=== PATIENT | male | born 1945 | race Caucasian/White ===

== ENCOUNTER → 2016-11-07 | Outpatient (CLI) | payer MEDICARE ==
[~2016-11-07] MED LIST: ASP325T PO; CEPH500T PO; CLOP75TA PO; CYAN1TAB21 PO; CYCL10TA9 PO; DIAZ10TA PO; GLIP5TAB26 PO; HYDR-3448 PO; LANS30CA PO; LISI40TA PO; MELO-195 PO; METO25TA PO; MULT1CAP27 PO; NIA500ERT PO; NITR0.4T12 SL; OMEG10005 PO; PNT40TEC PO; PRAV80TA2 PO; RAMI5CAP PO; pro air
== END ==
LOC: CARD 07:49
PROVIDERS: ATTEND Internal Medicine Cardiovascular Disease
DX: I25.10 Atherosclerotic heart disease of native coronary artery without angina pectoris (principal); I10 Essential (primary) hypertension; E78.2 Mixed hyperlipidemia; I07.1 Rheumatic tricuspid insufficiency
CPT/HCPCS: 93306

== ENCOUNTER → 2016-11-13 | Outpatient (CLI) | payer MEDICARE ==
[~2016-11-13] MED LIST changes: +CATHETER FLUSH 10 ML SYR IV PRN
[2016-11-13 09:56] VITALS: BP 161/80
[2016-11-13 10:15] VITALS: BP 159/72
--- NOTE | 2016-11-14 06:11 | STRESS TEST ---
DATE OF SERVICE: 11/13/2016 EXERCISE MYOVIEW STRESS TEST REPORT REFERRING PHYSICIAN: Dr. Xiong. Baseline heart rate is 50, baseline blood pressure 156/68. Baseline EKG sinus rhythm with no ischemic changes. SUMMARY: The patient was injected with 10.78 mCi of technetium-99 Myoview and the resting images were obtained. Then, the patient started exercising with baseline heart rate, blood pressure and EKG mentioned above. At minute 10, patient was injected with 30.3 mCi of technetium-99 Myoview. He was able to finish a total of 11 minutes on standard Rashid protocol, total of 12.8 METS, achieving maximum heart rate of 136, which is 90% of maximum expected heart rate, with peak exercise level blood pressure 203/81. During recovery, heart rate and blood pressure returned to baseline. EKG returned to baseline. With peak exercise level EKG was showing nondiagnostic changes. The resting and stress images were reviewed and compared in the short axis, horizontal long axis, and vertical long axis views. Review of the images showed diaphragmatic attenuation with good radiotracer uptake, no significant ischemia or infarction on SPECT images. SSS 1. SDS 1. TID value 0.99. On the gated images, the left ventricle appeared to be normal size with normal contractility, calculated ejection fraction 49%. CONCLUSIONS: 1. Excellent exercise tolerance, a total of 11 minutes on standard Rashid protocol, total of 12.8 METS achieving 90% of maximum expected heart rate. 2. Hypertensive response to exercise, returned to baseline during recovery. 3. No ischemia or infarction on SPECT images. 4. Normal left ventricular size with normal contractility, calculated ejection fraction 49%. Job ID: [id number] DocumentID: [id number] Dictated Date: 11/13/2016 15:10:29 Finishing Supervisor Date: 11/13/2016 20:00:58 Dictated By: BABAK ECHOLS MD
== END ==
LOC: CARD 08:02
PROVIDERS: ATTEND Internal Medicine Cardiovascular Disease
DX: I25.10 Atherosclerotic heart disease of native coronary artery without angina pectoris (principal); I10 Essential (primary) hypertension; E78.2 Mixed hyperlipidemia; I07.1 Rheumatic tricuspid insufficiency
CPT/HCPCS: 78452; 93017

== ENCOUNTER 2018-07-28 07:41 | Outpatient (CLI) | payer MEDICARE ==
[~2018-07-28] VITALS: Ht 170.2 cm; Wt 83.5 kg
== END 2018-07-28 13:32 | disposition home or self-care (01) ==
LOC: PREOP 07:41
PROVIDERS: ATTEND Internal Medicine
DX: Z01.818 Encounter for other preprocedural examination (principal)

== ENCOUNTER → 2018-07-31 | Day surgery (SDC) | payer MEDICARE ==
--- NOTE | 2018-07-23 21:03 | HISTORY AND PHYSICAL ---
DATE OF SERVICE: COLONOSCOPY HISTORY AND PHYSICAL DATE OF ADMISSION: 07/31/2018 HISTORY OF PRESENT ILLNESS: The patient is a 73-year-old white male referred by Dr. Gavin Fernandez for surveillance colonoscopy. He has a past history of adenomatous colonic polyps and last underwent colonoscopy six years ago at which time he had one tubular adenoma removed from the mid sigmoid colon and one made at which time, he had three tubular adenomas removed, one from the mid sigmoid colon, one from the proximal transverse colon and one from the mid descending colon. He reports that he has felt well. Since that time, denies bowel habit change, abdominal pain, bright red blood per rectum, melena or change in weight. PAST MEDICAL HISTORY: Significant for hypertension, hyperlipidemia and coronary artery disease. He underwent cardiac stenting in 2003 and he has had no problems since. 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 He quit smoking in 2003 with a previous 30+ pack year smoking history. He has no history of any significant alcohol consumption. FAMILY HISTORY: Father of a heart attack at age of 78. Mother of natural causes at the age of 93. He is not aware of any family history for colon cancer or colon polyps. MEDICATIONS ON ADMISSION: Include pravastatin 80 mg daily, lisinopril 20 mg daily, pantoprazole 40 mg daily, 81 mg aspirin daily and 3000 mg fish oil daily. PHYSICAL EXAMINATION: GENERAL: Reveals a pleasant white male, who appears to be in no acute distress. VITAL SIGNS: Weight is unchanged from six years ago at 184 pounds, blood pressure 130/76. HEENT: Unremarkable. Sclerae nonicteric. Oral cavity reveals Mallampati class 2 pharyngeal configuration with no evidence for erythema. CHEST: Clear to auscultation. CARDIOVASCULAR: Regular rate and rhythm without murmur, S3 or S4. ABDOMEN: Soft, supple, nontender without mass or organomegaly. Bowel sounds are positive. No evidence for abdominal aortic aneurysm was noted to palpation. EXTREMITIES: Reveal no cyanosis, clubbing or edema. ASSESSMENT AND PLAN: Due to the past history of adenomatous colonic polyps, the patient is set up for repeat surveillance colonoscopy on 07/31/2018. Prep instructions with the Prado-prep kit were given and questions were answered. I thank you for the referral of this pleasant gentleman. Job ID: [id number] DocumentID: [id number] Dictated Date: 07/23/2018 15:59:33 Education Professor Date: 07/23/2018 21:02:12 Dictated By: INESSA AGUILERA MD
[~2018-07-31] VITALS: Ht 170.2 cm; Wt 83.5 kg
[~2018-07-31] MED LIST changes: +ASPI-999 PO; -CATHETER FLUSH 10 ML SYR IV PRN; +D5 LR IV SOLUTION 1,000 ML IV ONE; +D5 LR IV SOLUTION 1,000 ML IV PRN; +LIDOCAINE JELLY 2% 6 ML SYRINGE MM PRN; +LIDOCAINE JELLY 2% 6 ML SYRINGE ONE; +LISI-552 PO; +MIDAZOLAM 2 MG/2 ML (VERSED) VIAL IVP ONE; +MIDAZOLAM 2 MG/2 ML (VERSED) VIAL ONE; +MULT1TAB69 PO; +OMEG-143 PO; +PANT40TA3 PO; +fentaNYL INJECTION 100 MCG/2 ML AMP IVP ONE; +fentaNYL INJECTION 100 MCG/2 ML AMP ONE
[2018-07-31 08:15] VITALS: BP 146/77
--- NOTE | 2018-07-31 08:31 | Pre-Op Note & Conscious Sedat ---
Pre-Operative Progress Note H&P Reviewed The H&P was reviewed, patient examined and no changes noted. Date H&P Reviewed: Jul 31, 2018 Time H&P Reviewed: 08:31 Conscious Sedation Pre-Proced ASA Score 2 For ASA 3 and 4: Consider anesthesia and medical clearance. Also, for patients with a history of failed moderate sedation consider anesthesia. Airway Lungs Heart ASA score ASA 1: a normal healthy patient ASA 2: a patient with a mild systemic disease (mid diabetes, controlled hypertension, obesity ASA 3: a patient with a severe systemic disease that limits activity (angina , COPD, prior Myocardial infarction) ASA 4: a patient with an incapacitating disease that is a constant threat to life (CHF, renal failure) ASA 5: a moribund patient not expected to survive 24 hrs. (ruptured aneurysm) ASA 6: a declared brain- patient whose organs are being harvested. For emergent operations, add the letter E after the classification Mallampati Classification Grade 2 Sedation Plan Analgesia, Amnesia, Plan communicated to team members, Discussed options with patient/fam, Discussed risks with patient/fam The patient is an appropriate candidate to undergo the planned procedure, sedation, and anesthesia. The patient immediately re-assessed prior to indication. INESSA AGUILERA MD Jul 31, 2018 08:31
[2018-07-31 09:45] VITALS: BP 137/71
[2018-07-31 10:00] VITALS: BP 135/63
[2018-07-31 10:05] VITALS: BP 135/63
--- NOTE | 2018-07-31 17:04 | OPERATIVE REPORT ---
DATE OF SERVICE: COLONOSCOPY SUMMARY INDICATION FOR THE PROCEDURE: Surveillance colonoscopy due to past history of colon polyps. The patient was placed in left lateral decubitus position. Prior to undergoing colonoscopy, digital rectal evaluation was performed. Anal sphincter tone was normal and the perianal reflexes intact. The prostate was mild to moderately enlarged, anodular and nontender to digital inspection. No other abnormalities, no additional inspection of anal canal or distal rectal vault. The colonoscope was then inserted into the rectum and under direct visualization advanced to the cecum. The cecum was identified by identification of the ileocecal valve, cecal strap and appendiceal orifice. Photographic documentation was obtained. Careful inspection was made as the colonoscope was withdrawn. The quality of the prep was good. FINDINGS: There was no evidence for internal or external hemorrhoids and the rectum was unremarkable. Several small sigmoid diverticula were present without evidence for diverticulitis. One diminutive polyp was noted in the mid descending colon. It was photographed and biopsied and ablated and submitted for histopathology. The remainder of the descending colon, splenic flexure and transverse colon were unremarkable. Several small right-sided diverticulum were noted. One diminutive mid ascending colonic sessile polyp was noted. It was photographed and biopsied and ablated with no subsequent blood loss. The tissue was submitted for histopathology. The remainder of the ascending colon and cecum were unremarkable. ASSESSMENT: Two diminutive polyps were removed today, one from the mid ascending and the other from the mid descending colon. Both cauterized with hot forceps with no subsequent blood loss. As long as there are no surprises on histopathology, we would advocate consideration for repeat surveillance colonoscopy in 5 years as long as the patient's health remains good. Mild diverticular disease was present without evidence for diverticulitis in the sigmoid colon and there were several small diverticula being noted in the ascending colon as well. The prostate is mild to moderately enlarged, otherwise unremarkable to digital inspection. Thank you for the referral of this pleasant gentleman. Job ID: [id number] DocumentID: [id number] Dictated Date: 07/31/2018 09:42:42 [employer] Flatbed Truck Driver Date: 07/31/2018 17:03:58 Dictated By: INESSA AGUILERA MD
== END | disposition home or self-care (01) ==
LOC: ENDO 07:59
PROVIDERS: ATTEND Internal Medicine
DX: Z12.11 Encounter for screening for malignant neoplasm of colon (principal); D12.2 Benign neoplasm of ascending colon; D12.4 Benign neoplasm of descending colon; K57.30 Diverticulosis of large intestine without perforation or abscess without bleeding; Z86.010 Personal history of colon polyps; I25.10 Atherosclerotic heart disease of native coronary artery without angina pectoris; I10 Essential (primary) hypertension; E78.5 Hyperlipidemia, unspecified; Z87.891 Personal history of nicotine dependence; Z95.5 Presence of coronary angioplasty implant and graft; Z79.82 Long term (current) use of aspirin; Z79.899 Other long term (current) drug therapy

== ENCOUNTER → 2020-02-04 | Outpatient (CLI) | payer MEDICARE ==
[~2020-02-04] MED LIST changes: -D5 LR IV SOLUTION 1,000 ML IV ONE; -D5 LR IV SOLUTION 1,000 ML IV PRN; -LIDOCAINE JELLY 2% 6 ML SYRINGE MM PRN; -LIDOCAINE JELLY 2% 6 ML SYRINGE ONE; -MIDAZOLAM 2 MG/2 ML (VERSED) VIAL IVP ONE; -MIDAZOLAM 2 MG/2 ML (VERSED) VIAL ONE; +MULT-567 PO; -MULT1TAB69 PO; -fentaNYL INJECTION 100 MCG/2 ML AMP IVP ONE; -fentaNYL INJECTION 100 MCG/2 ML AMP ONE
--- NOTE | 2020-02-04 11:45 | Diagnostic Imaging Report ---
EXAMINATION: Magnetic resonance imaging of the left shoulder without contrast. DATE: February 04, 2020. COMPARISON: None. HISTORY: 74-year-old male, left shoulder pain. TECHNIQUE: Magnetic Resonance Imaging sequences were performed of the shoulder without contrast. FINDINGS: ROTATOR CUFF, LIGAMENTS, TENDONS, AND MUSCLES: There is a 16 mm wide full-thickness tear of the supraspinatus tendon with tendon retraction measuring 12 mm near the level of the superior humeral head. The infraspinatus and teres minor tendons are intact. There is subscapularis tendinopathy. There are small intramuscular ganglion cyst in the subscapularis muscle. LONG HEAD OF BICEPS: The biceps labral attachment and long head of the biceps tendon is intact. The long head of the biceps tendon is normally positioned within the bicipital groove. GLENOHUMERAL JOINT: The humeral head is well positioned relative to the glenoid. The labrum is grossly intact. There is no identified paralabral cyst. The articular cartilage is grossly intact. There is no joint effusion. ACROMIOCLAVICULAR JOINT: The acromioclavicular joint is normally aligned. The coracoclavicular and coracoacromial ligaments are intact. There are moderate acromioclavicular degenerative changes with osteophytes extending approximately 3 mm below the joint margin. BONE: There is no os acromiale. There is no Hill-Sachs deformity. There is a subcortical cyst in the lesser tuberosity which may be reactive to the adjacent tendon pathology. There are small subcortical cystic changes in the superior humeral head underlying the posterior aspect of the infraspinatus tendon insertion. There is no acute fracture, bone contusion, or evidence of osteonecrosis. BURSAE AND SOFT TISSUES: There is a small amount of fluid in the subacromial subdeltoid bursa. IMPRESSION: 1. 16 mm wide full-thickness tear of the supraspinatus tendon with tendon retraction measuring 12 mm to the level of the superior humeral head. 2. Subscapularis tendinopathy. Small ganglion cyst in the supraspinatus muscle which may relate to otherwise occult interstitial tearing of the subscapularis tendon. 3. No fatty atrophy of the rotator cuff musculature. 4. Moderate acromioclavicular degenerative changes with 3 mm undersurface osteophytes. 5. Grossly intact labrum and unremarkable additional glenohumeral joint evaluation. 6. A small amount of fluid in the subacromial subdeltoid bursa which may relate to the full-thickness rotator cuff tendon tear, bursitis, and/or recent injection. Dictated by: Dictated on workstation # [id number]
== END ==
LOC: RAD 09:06
PROVIDERS: ATTEND Family Medicine
DX: M75.102 Unspecified rotator cuff tear or rupture of left shoulder, not specified as traumatic (principal); M67.472 Ganglion, left ankle and foot; M19.012 Primary osteoarthritis, left shoulder
CPT/HCPCS: 73221

== ENCOUNTER 2020-02-24 13:55 | Outpatient (CLI) | payer MEDICARE ==
[~2020-02-24] VITALS: Ht 167.7 cm; Wt 81.7 kg
[~2020-02-24 13:55] MED LIST changes: -PANT40TA3 PO; +PANT40TA52 PO
[2020-02-24 14:06] VITALS: BP 130/67
[2020-02-24] MEDS ORDERED: LISI40TA PO (14:20)
[2020-02-24] MEDS ORDERED: ASPI-999 PO (14:20)
== END 2020-02-24 14:25 | disposition home or self-care (01) ==
LOC: PREOP 13:55
PROVIDERS: ATTEND Orthopaedic Surgery
DX: Z01.818 Encounter for other preprocedural examination (principal); M75.102 Unspecified rotator cuff tear or rupture of left shoulder, not specified as traumatic; S43.402A Unspecified sprain of left shoulder joint, initial encounter
CPT/HCPCS: 87081

== ENCOUNTER 2020-03-01 07:23 | Day surgery (SDC) | payer MEDICARE ==
--- NOTE | 2020-02-24 13:37 | HISTORY AND PHYSICAL ---
DATE OF SERVICE: ADMISSION HISTORY AND PHYSICAL This will be for outpatient surgery on 03/01/2020. Admission, date of service, date of surgery will be 03/01/2020 for left shoulder arthroscopy with open rotator cuff repair. HISTORY: The patient is a 74-year-old right hand dominant gentleman with progressive worsening left shoulder pain and weakness over the last six months. He had no prior history of shoulder problems. He underwent an MRI, which showed a full thickness rotator cuff tear. He reports progressive loss of function with weakness and pain. Due to functional impairment and failure to improve with conservative measures, the patient elected to proceed with surgical intervention. REVIEW OF SYSTEMS: No chest pain, no shortness of breath, no dysuria. PAST MEDICAL HISTORY: Coronary artery disease, hypertension. PAST SURGICAL HISTORY: Coronary stent placement. FAMILY HISTORY: Noncontributory. PRIMARY CARE PROVIDER: Dr. Fernandez. MEDICATIONS: Pravastatin, lisinopril, pantoprazole, aspirin, Centrum, fish oil. ALLERGIES: No known drug allergies. SOCIAL HISTORY: The patient is a former smoker. Denies alcohol use. An MRI revealed a full-thickness supraspinatus tear. PHYSICAL EXAMINATION: GENERAL: The patient is well developed, well nourished, in no acute distress. HEENT: Normocephalic, atraumatic. Pupils are equal, round, reactive to light. Oropharynx is clear. NECK: Supple, no lymphadenopathy. LUNGS: Clear to auscultation bilaterally. HEART: Regular rate and rhythm. ABDOMEN: Soft, nontender, nondistended. EXTREMITIES: Left shoulder demonstrates symmetric forward elevation, external and internal rotation. He has weakness with abduction and external rotation with positive Neer's and positive Hawkin sign. IMPRESSION: Full thickness left supraspinatus tear. PLAN: Left shoulder arthroscopy, acromioplasty, open rotator cuff repair. We discussed risks, benefits, options, ramifications and recovery. He understands and wishes to proceed. Job ID: [id number] DocumentID: [id number] Dictated Date: 02/24/2020 11:51:11 Magnetic Resonance Technologist Date: 02/24/2020 12:40:03 Dictated By: FITO ACKERMAN MD
[~2020-03-01] VITALS: Ht 167.7 cm; Wt 81.7 kg
[2020-03-01] VITALS (10 sets, daily range): BP systolic 104–150; BP diastolic 62–80
[2020-03-01] MEDS ORDERED: LACTATED RINGERS 1,000 ML IV PRN (07:27)
[2020-03-01] MEDS ORDERED: ceFAZolin INJECTION 1,000 MG in WATER (STERILE) FOR INJECTION 10 ML IV ONE (07:30)
[2020-03-01] MEDS ORDERED: CATHETER FLUSH 10 ML SYR IV PRN (07:30)
[2020-03-01] MEDS ORDERED: oxyCODONE/APAP 5/325MG (PERCOCET 5) TABLET PO PRN (07:30)
[2020-03-01] MEDS ORDERED: morphine PF (DURAMORPH) 10 MG/10 ML AMP ONE (07:40)
[2020-03-01] MEDS ORDERED: BUPIVACAINE 0.25% 30 ML (SENSORCAINE) VIAL ONE (07:40)
[2020-03-01] MEDS ORDERED: MIDAZOLAM 2 MG/2 ML (VERSED) VIAL ONE (07:47)
[2020-03-01] MEDS ORDERED: fentaNYL INJECTION 100 MCG/2 ML AMP ONE (07:47)
[2020-03-01] MEDS ORDERED: ROPIVACAINE 5MG/ML 30ML VIAL ONE (08:45)
[2020-03-01] MEDS ORDERED: SEVOFLURANE (ULTANE) 15 ML INHAL SOLN ONE (08:48)
[2020-03-01] MEDS ORDERED: LIDOCAINE PF 2% 5 ML (XYLOCAINE) VIAL ONE (08:48)
[2020-03-01] MEDS ORDERED: ONDANSETRON 4 MG/2 ML (SDV) Z0FRAN ONE (08:48)
[2020-03-01] MEDS ORDERED: proPOfol 200 MG/20 ML (DIPRIVAN) VIAL IV ONE (08:48)
--- NOTE | 2020-03-01 09:01 | Progress Note-Pre Operative ---
Pre-Operative Progress Note H&P Reviewed The H&P was reviewed, patient examined and no changes noted. Date Seen by Provider: Mar 01, 2020 Time Seen by Provider: : Date H&P Reviewed: Mar 01, 2020 Time H&P Reviewed: 09:01 Pre-Operative Diagnosis: left rotator cuff and SLAP tears FITO ACKERMAN MD Mar 01, 2020 09:01
--- NOTE | 2020-03-01 09:02 | Progress Note-Post Operative ---
Post-Operative Progess Note Surgeon (s)/Snow Removal Supervisor (s) Surgeon FITO ACKERMAN MD Snow Removal Supervisor: Andrzej St Pre-Operative Diagnosis left rotator cuff and SLAP tears Post-Operative Diagnosis left rotator cuff and SLAP tears Procedure & Operative Findings Date of Procedure 03/01/20 Procedure Performed/Findings left shoulder arthroscopic acromioplasty and biceps tenotomy and open rotator cuff repair Anesthesia Type GETA plus interscalene Estimated Blood Loss Estimated blood loss (mL): minimal Specimens/Packing Specimens Removed none Packing: none FITO ACKERMAN MD Mar 01, 2020 09:02
[2020-03-01] MEDS ORDERED: GLYCOPYRROLATE 0.2 MG/ML (ROBINUL) 2 ML VIAL ONE (09:42)
[2020-03-01] MEDS ORDERED: NEOSTIGMINE 3 MG/3 ML VIAL ONE (09:42)
[2020-03-01] MEDS ORDERED: ROCURONIUM 10 MG/ML 5 ML SYRINGE IV ONE (09:49)
[2020-03-01] MEDS ORDERED: OXYC-471 PO (10:26)
--- NOTE | 2020-03-01 11:55 | NUR ---
RARON'Hank IV. PATIENT RECEIVED 1900 CC OF LR TODAY.
--- NOTE | 2020-03-01 14:21 | OPERATIVE REPORT ---
DATE OF SERVICE: 03/01/2020 PREOPERATIVE DIAGNOSES: 1. Left rotator cuff tear. 2. Left shoulder SLAP tear. POSTOPERATIVE DIAGNOSES: 1. Left rotator cuff tear. 2. Left shoulder SLAP tear. PROCEDURES PERFORMED: 1. Left shoulder open rotator cuff repair. 2. Left shoulder arthroscopic biceps tenotomy. 3. Left shoulder arthroscopic acromioplasty. SURGEON: Zac Ackerman MD. OUTDOOR POWER EQUIPMENT MECHANIC: Andrzej St, who assisted throughout the procedure and closed the incisions. ANESTHESIA: General endotracheal plus interscalene nerve block by Krystal Cali CRNA. ESTIMATED BLOOD LOSS: Minimal. DRAINS: None. COMPLICATIONS: None. POSTOPERATIVE PLAN: Passive range of motion and sling wear for 4 weeks. The patient was transferred to the recovery room awake and in stable condition. STATEMENT OF MEDICAL NECESSITY: The patient is a 74-year-old gentleman with complaints of progressively worsening left shoulder pain and weakness. An MRI revealed full thickness rotator cuff tear. He had difficulty with sleep. He had weakness with abduction and external rotation due to functional impairment and failure to improve with conservative measures. The patient elected to proceed with surgical intervention. Examination under anesthesia revealed passive forward elevation of 170 degrees, external rotation of 85 degrees and internal rotation of 75 degrees. Arthroscopic findings demonstrated a full thickness supraspinatus tear approximately 2 x 2 cm in size. The remainder of the rotator cuff was intact. There was a type 2 SLAP tear with chondral loss in the superior aspect of the glenoid in an 8 x 8 area of grade III in nature, but no unstable chondral flaps. Subacromial space demonstrated moderate bursitis with sloping of the anterolateral acromion. DESCRIPTION OF PROCEDURE: After risks and benefits of the procedure were discussed and questions were answered, an informed consent was signed and placed on chart and the operative site was confirmed in the preoperative holding area initialed by the surgeon. The patient was then transferred to the operating room and after adequate levels of general endotracheal anesthetic were obtained, a timeout was called, confirming the operative site. Examination under anesthesia was performed with the above findings noted. The left shoulder and upper extremity were prepped and draped in the usual sterile fashion. Shoulder joint was injected with 20 mL of fluid and a standard posterior portal was placed. Under direct visualization, anterior portal was created in the interval between the biceps, subscapularis and glenoid. A diagnostic arthroscopy was carried out with the above findings noted. The biceps anchor was released and the stump was debrided with a shaver. The scope was redirected into the subacromial space. Lateral portal was created and the acromion was planed to a flat type 1 acromion and a bursectomy was performed. The scope and instruments were then removed. The lateral portal was then extended. The deltoid was split in line with its line with its fibers leaving attached to the acromion. A bleeding bony bed was prepared just off the articular surface and a single corkscrew anchor was placed. A modified John-Ramón repair was performed with an excellent repair obtained with no undue tension noted at the repair site. The patient had excellent rotator cuff tissue. The wound was copiously irrigated. The deltoid was repaired in a [id number]-[id number] fashion using #2 FiberWire in a jawbqo-kb-vrgkp interrupted fashion. The wound was further irrigated, 3-0 Vicryl was used to reapproximate subcutaneous tissue and the skin was closed with 4-0 nylon in a running alternating horizontal mattress fashion. The portal sites were closed with 4-0 nylon in a simple interrupted fashion. The shoulder joint was injected with Duramorph. The port sites were infiltrated with plain Marcaine. A soft dressing and sling were applied and the patient was transferred to the recovery room awake and in a stable condition. Job ID: [id number] DocumentID: [id number] Dictated Date: 03/01/2020 10:01:28 Server Administrator Date: 03/01/2020 14:19:59 Dictated By: ZAC ACKERMAN MD
--- NOTE | 2020-03-01 14:39 | Anesthesia-General Post-Op ---
General Patient Condition Mental Status/LOC: Same as Preop Cardiovascular: Satisfactory Nausea/Vomiting: Absent Respiratory: Satisfactory Pain: Controlled Complications: Absent Post Op Complications Complications None Follow Up Care/Instructions Patient Instructions None needed. Anesthesia/Patient Condition Patient Condition Patient is doing well, no complaints, stable vital signs, no apparent adverse anesthesia problems. No complications reported per nursing. JORGE DELVALLE CRNA Mar 01, 2020 14:39
== END 2020-03-01 12:30 | disposition home or self-care (01) ==
LOC: SDC 07:23
PROVIDERS: ATTEND Orthopaedic Surgery
DX: M75.122 Complete rotator cuff tear or rupture of left shoulder, not specified as traumatic (principal); S43.432A Superior glenoid labrum lesion of left shoulder, initial encounter; I10 Essential (primary) hypertension; I25.10 Atherosclerotic heart disease of native coronary artery without angina pectoris; K21.9 Gastro-esophageal reflux disease without esophagitis; Z79.899 Other long term (current) drug therapy; Z87.891 Personal history of nicotine dependence; Z95.5 Presence of coronary angioplasty implant and graft
CPT/HCPCS: 23410; 29822; 29826; C1713

== ENCOUNTER 2020-04-17 15:05 | Inpatient (IN) | payer MEDICARE ==
[~2020-04-17] VITALS: Ht 167.7 cm; Wt 81.7 kg
[2020-04-17] VITALS (9 sets, daily range): BP systolic 97–146; BP diastolic 48–98
[~2020-04-17 15:05] MED LIST changes: +OXYC-471 PO
[2020-04-17] MEDS ORDERED: LACTATED RINGERS 1,000 ML IV PRN ×4 (15:14→16:30)
[2020-04-17] MEDS ORDERED: fentaNYL INJECTION 100 MCG/2 ML AMP ONE (15:19)
[2020-04-17] MEDS ORDERED: MIDAZOLAM 2 MG/2 ML (VERSED) VIAL ONE (15:20)
[2020-04-17] MEDS ORDERED: BUPIVACAINE 0.25% 30 ML (SENSORCAINE) VIAL ONE (15:23)
[2020-04-17] MEDS ORDERED: SULF1TAB35 PO (16:06)
[2020-04-17] MEDS ORDERED: DOXY100T2 PO (16:06)
[2020-04-17] MEDS ORDERED: HYDROcodone/APAP 7.5 MG/325 MG (LORTAB, LORCET PLUS) TABLET PO PRN ×2 (16:15→17:15)
--- NOTE | 2020-04-17 16:17 | Progress Note-Pre Operative ---
Pre-Operative Progress Note H&P Reviewed The H&P was reviewed, patient examined and no changes noted. Date Seen by Provider: Apr 17, 2020 Time Seen by Provider: 16:10 Date H&P Reviewed: Apr 17, 2020 Time H&P Reviewed: 16:09 Pre-Operative Diagnosis: left shoulder abscess FITO ACKERMAN MD Apr 17, 2020 16:17
--- NOTE | 2020-04-17 16:19 | Progress Note-Post Operative ---
Post-Operative Progess Note Surgeon (s)/Crosscutter (s) Surgeon FITO ACKERMAN MD Crosscutter: Andrzej St Pre-Operative Diagnosis left shoulder abscess Post-Operative Diagnosis left shoulder septic arthrits Procedure & Operative Findings Date of Procedure 04/17/20 Procedure Performed/Findings irrigation and debridement of the left shoulder Anesthesia Type GETA Estimated Blood Loss Estimated blood loss (mL): minimal Specimens/Packing Specimens Removed cultures sent Packing: none FITO ACKERMAN MD Apr 17, 2020 16:19
[2020-04-17] MEDS ORDERED: proPOfol 200 MG/20 ML (DIPRIVAN) VIAL IV ONE (16:40)
[2020-04-17] MEDS ORDERED: PHENYLEPHRINE 100 MCG/ML 10 ML (ANESTHESIA) SYR ONE (16:40)
[2020-04-17] MEDS ORDERED: LIDOCAINE PF 2% 5 ML (XYLOCAINE) VIAL ONE (16:40)
[2020-04-17] MEDS ORDERED: ROCURONIUM 10 MG/ML 5 ML SYRINGE IV ONE (16:40)
[2020-04-17] MEDS ORDERED: SUCCINYLCHOLINE INJ 100 MG/5 ML SYR/VIAL ONE (16:40)
[2020-04-17] MEDS ORDERED: SEVOFLURANE (ULTANE) 15 ML INHAL SOLN ONE (17:11)
[2020-04-17] MEDS ORDERED: morphine INJ 4 MG/ML 1 ML (VIAL/SYRINGE) IVP PRN (17:15)
[2020-04-17] MEDS ORDERED: ACETAMINOPHEN 325 MG TABLET PO PRN (17:15)
[2020-04-17] MEDS ORDERED: ONDANSETRON 4 MG/2 ML (SDV) Z0FRAN IVP PRN ×2 (17:15→17:30)
--- NOTE | 2020-04-17 17:19 | Anesthesia-General Post-Op ---
General Patient Condition Mental Status/LOC: Same as Preop Cardiovascular: Satisfactory Nausea/Vomiting: Absent Respiratory: Satisfactory Pain: Controlled Complications: Absent Post Op Complications Complications None Follow Up Care/Instructions Patient Instructions None needed. Anesthesia/Patient Condition Patient Condition Patient is doing well, no complaints, stable vital signs, no apparent adverse anesthesia problems. No complications reported per nursing. JORGE DELVALLE CRNA Apr 17, 2020 17:18
[2020-04-17] MEDS ORDERED: morphine INJ 10 MG/ML 1ML (SYR OR VIAL) IVP ONE (17:30)
[2020-04-17] MEDS ORDERED: CLINDAMYCIN INJECTION 300 MG in NS (IVPB) 50 ML IV ONE (18:00)
[2020-04-17] MEDS: CLINDAMYCIN INJECTION 300 MG in NS (IVPB) 50 ML IV SCH (22:49)
[2020-04-17] MEDS: RIFAMPIN 150 MG (RIFADIN) CAP PO SCH (23:01)
[2020-04-18] VITALS (7 sets, daily range): BP systolic 127–157; BP diastolic 62–79
--- NOTE | 2020-04-18 00:51 | OPERATIVE REPORT ---
DATE OF SERVICE: 04/17/2020 PREOPERATIVE DIAGNOSIS: Left shoulder abscess, status post rotator cuff repair. POSTOPERATIVE DIAGNOSIS: Left shoulder septic arthritis, status post rotator cuff repair. PROCEDURE: Irrigation and debridement, left shoulder. SURGEON: Zac Ackerman MD YARD MANAGER: Andrzej St, who assisted throughout the procedure and closed the incision. ANESTHESIA: General endotracheal by Krystal Cali CRNA. DRAINS: None. COMPLICATIONS: None. ESTIMATED BLOOD LOSS: Minimal. Cultures were sent. POSTOPERATIVE PLAN: IV clindamycin with plans for a repeat irrigation and debridement in approximately 48 hours. The patient was transferred to the recovery room awake and stable condition. STATEMENT OF MEDICAL NECESSITY: The patient is a 74-year-old gentleman who is 7 weeks status post left rotator cuff repair. He is doing very well, but was noted to have some erythema at his incision site last week. He has had some fluctuance noted. This was aspirated with some purulent material obtained, the patient was counseled regarding treatment options and was trying to avoid operative intervention, but on return today to the office the fluctuance remained and it was recommended this patient to undergo irrigation and debridement with assessment of the deep tissues. DESCRIPTION OF PROCEDURE: After risks and benefits of procedure were discussed and questions were answered, informed consent was signed and placed on chart, the operative site was confirmed in the preoperative holding area initialed by the surgeon. The patient was then transferred to the operating room. After adequate levels of general endotracheal anesthetic were obtained, a timeout was called, confirming the operative site. The left shoulder and upper extremity were prepped and draped in the usual sterile fashion. The previous incision was utilized. There was gross purulence deep to the incision site. This was cultured. This was then irrigated with approximately 2 liters of pulse lavage. The previous deltoid split appeared to be intact, but there was a very small rent noted in the mid portion of the previous deltoid split. This was probed carefully and found to communicate deep and there was purulent material noted. Therefore, the deltoid split was opened and there was found to be purulent material at the rotator cuff repair site. The rotator cuff anchor was identified and removed without difficulty. The tissue quality remained good with no necrosis noted. This appeared to be a very low virulence consistent with Propionibacterium infection. This was then irrigated with additional 4 liters pulse lavage using a total of 6 liters throughout the procedure. No purulence remained. The deltoid split was repaired in a adcq-[id number]-sjwf fashion using #1 Vicryl. The wound was further irrigated, 3-0 Vicryl was used to reapproximate subcutaneous tissue. Skin was closed with 4-0 nylon in vertical mattress interrupted fashion. A soft dressing was applied. The patient was transferred to the recovery room awake and in stable condition. Job ID: [id number] DocumentID: [id number] Dictated Date: 04/17/2020 17:17:30 Metal Sheet Roller Operator Date: 04/18/2020 00:50:43 Dictated By: ZAC ACKERMAN MD
--- NOTE | 2020-04-18 04:34 | HISTORY AND PHYSICAL ---
DATE OF SERVICE: ADMISSION HISTORY AND PHYSICAL DATE OF ADMISSION: 04/17/2020. This will be for admission on 04/17/2020 for irrigation and debridement of left shoulder. HISTORY OF PRESENT ILLNESS: The patient is a 74-year-old gentleman, who is approximately seven weeks status post left rotator cuff repair. He has been doing well, but noticed erythema last week. He underwent an aspiration, which revealed superficial purulence. The patient did not desire surgical treatment at that point, he was started on Bactrim and doxycycline and on followup today, there is persistent erythema and some fluctuance. It was recommended the patient undergo operative irrigation and debridement. REVIEW OF SYSTEMS: No recent chest pain, shortness of breath, dysuria, fever, chills or night sweats. PAST MEDICAL HISTORY: Cardiac hypertension. PAST SURGICAL HISTORY: Coronary stents. FAMILY HISTORY: Significant for stroke. PRIMARY CARE PROVIDER: Dr. Fernandez. MEDICATIONS: Pravastatin, lisinopril, pantoprazole, aspirin, Centrum and fish oil. ALLERGIES: No known drug allergies. SOCIAL HISTORY: The patient is a former smoker. Denies alcohol use. PHYSICAL EXAMINATION: GENERAL: The patient is well-developed, well-nourished, in no acute distress. HEENT: Normocephalic and atraumatic. Pupils are equal, round and reactive to light. Oropharynx is clear. NECK: Supple, no lymphadenopathy. LUNGS: Clear to auscultation bilaterally. HEART: Regular rate and rhythm. ABDOMEN: Soft, nontender and nondistended. EXTREMITIES: Left shoulder demonstrates no pain with glenohumeral rotation with passive range of motion. There is some erythema at his incision site, but his incision is well healed. There is some mild fluctuance noted as well and mild warmth. IMPRESSION: Left shoulder infection, status post rotator cuff repair. PLAN: Left shoulder irrigation and debridement. We discussed risks, benefits, options, ramifications and recovery. He understands and wishes to proceed. Job ID: [id number] DocumentID: [id number] Dictated Date: 04/17/2020 08:51:07 Hand Shaper Date: 04/17/2020 10:46:33 Dictated By: FITO ACKERMAN MD
[2020-04-18] MEDS: CLINDAMYCIN INJECTION 300 MG in NS (IVPB) 50 ML IV SCH ×3 (05:58→23:14)
--- NOTE | 2020-04-18 07:03 | Progress Note ---
Standard Progress Note Progress Notes/Assess & Plan Date Seen by a Provider: Apr 18, 2020 Time Seen by a Provider: 07:02 Progress/Assessment & Plan no complaints cultures Pending Vital Signs Date Time Temp Pulse Resp B/P (MAP) Pulse Ox O2 Delivery O2 Flow Rate FiO2 04/18/20 03:30 36.7 74 20 151/67 (95) 94 Room Air 04/18/20 03:17 Room Air 04/18/20 00:07 36.6 82 20 136/71 (92) 92 Room Air 04/17/20 21:00 98 Room Air 04/17/20 20:08 36.9 71 20 119/67 (84) 98 Room Air 04/17/20 18:45 99 Room Air 04/17/20 18:04 Room Air 04/17/20 18:04 36.2 14 131/78 (95) 99 Room Air 04/17/20 18:00 14 131/78 (95) 99 Room Air 04/17/20 17:55 Room Air 04/17/20 17:50 16 131/98 (109) 95 Room Air 04/17/20 17:40 OxyMask 3 04/17/20 17:40 14 123/57 (79) 100 OxyMask 3 04/17/20 17:30 16 103/48 (66) 100 OxyMask 3 04/17/20 17:25 OxyMask 6 04/17/20 17:20 16 97/49 (65) 97 OxyMask 6 04/17/20 17:13 36.4 18 98/52 (67) 99 OxyMask 8 04/17/20 17:13 OxyMask 8 04/17/20 15:03 36.5 78 20 146/73 (97) 98 Room Air I & O 04/18/20 07:00 Intake Total 1800 ml Balance 1800 ml Laboratory Tests Test 04/17/20 16:35 Range/Units L shoulder dressing intact. NVI distally s/p I and D left shoulder likely P acnes, but follow cultures plan for repeat I and D tomorrow FITO ACKERMAN MD Apr 18, 2020 07:03
[2020-04-18] MEDS: RIFAMPIN 150 MG (RIFADIN) CAP PO SCH ×2 (08:16→20:07)
--- NOTE | 2020-04-18 09:42 | Physical Therapy Progress Note ---
Therapy Progress Note Patient is up independently and reports he is performing HEP independently as well. Patient declined PT. No PT indicated. 1 visit(602) SHARON SMITH PT Apr 18, 2020 09:42
--- NOTE | 2020-04-18 13:25 | NUR ---
"RD ASSESSMENT PMHx: HTN PT INTERACTION: Pt was awake and pleasant during nutrition assessment. Pt states current appetite is good. Note avg PO intake 100% x2meal, per chart review. Pt states following a regular diet at home, and has no issues with chewing/swallowing food. Pt states no recent issues with nausea, vomiting, constipation, or diarrhea. Note last BM was 04/18, and pt not currently on bowel regimen per chart review. Pt states 7# wt loss, but wasn't sure of timeframe. Note unable to determine recent wt hx, per chart review. Note presence of wound (L shoulder), per chart review. ABNORMAL NUTRITION-RELATED LAB VALUES No labs drawn Est. kcal needs: 9541-0357 kcal | 20-25 kcal/kg Est. Pro needs: 82-98 g Pro | 1.0-1.2 g Pro/kg PES STATEMENT: Inadequate protein intake (NI-2.1) related to increased protein needs as evidenced by presence of wound (L shoulder). INTERVENTION: Continue with current diet order of Regular diet. Pt may benefit from nutrition supplementation, pending lab results for protein levels. Will continue to follow and reassess as pt needs, intake, and status change. Kiarra Ware, MS RD LD"
[2020-04-19] VITALS (10 sets, daily range): BP systolic 87–149; BP diastolic 53–75
[2020-04-19] MEDS: CLINDAMYCIN INJECTION 300 MG in NS (IVPB) 50 ML IV SCH ×3 (06:40→21:18)
--- NOTE | 2020-04-19 07:31 | Progress Note ---
Standard Progress Note Progress Notes/Assess & Plan Date Seen by a Provider: Apr 19, 2020 Time Seen by a Provider: 07:30 Progress/Assessment & Plan no complaints cultures Pending Vital Signs Date Time Temp Pulse Resp B/P (MAP) Pulse Ox O2 Delivery O2 Flow Rate FiO2 04/18/20 03:30 36.7 74 20 151/67 (95) 94 Room Air 04/18/20 03:17 Room Air 04/18/20 00:07 36.6 82 20 136/71 (92) 92 Room Air 04/17/20 21:00 98 Room Air 04/17/20 20:08 36.9 71 20 119/67 (84) 98 Room Air 04/17/20 18:45 99 Room Air 04/17/20 18:04 Room Air 04/17/20 18:04 36.2 14 131/78 (95) 99 Room Air 04/17/20 18:00 14 131/78 (95) 99 Room Air 04/17/20 17:55 Room Air 04/17/20 17:50 16 131/98 (109) 95 Room Air 04/17/20 17:40 OxyMask 3 04/17/20 17:40 14 123/57 (79) 100 OxyMask 3 04/17/20 17:30 16 103/48 (66) 100 OxyMask 3 04/17/20 17:25 OxyMask 6 04/17/20 17:20 16 97/49 (65) 97 OxyMask 6 04/17/20 17:13 36.4 18 98/52 (67) 99 OxyMask 8 04/17/20 17:13 OxyMask 8 04/17/20 15:03 36.5 78 20 146/73 (97) 98 Room Air I & O 04/18/20 07:00 Intake Total 1800 ml Balance 1800 ml Laboratory Tests Test 04/17/20 16:35 Range/Units L shoulder dressing intact. NVI distally s/p I and D left shoulder likely P acnes, but follow cultures plan for repeat I and D tomorrow Final Diagnosis feeling fine cultures pending no Gram stain results!!! Vital Signs Date Time Temp Pulse Resp B/P (MAP) Pulse Ox O2 Delivery O2 Flow Rate FiO2 04/19/20 03:27 36.6 65 20 140/64 (89) 93 Room Air 04/18/20 23:34 36.4 69 20 127/62 (83) 94 Room Air 04/18/20 20:05 Room Air 04/18/20 19:43 36.6 77 20 137/74 (95) 96 Room Air 04/18/20 15:34 36.4 76 20 130/75 (93) 96 Room Air 04/18/20 12:00 36.6 75 20 157/79 (105) 98 Room Air 04/18/20 09:00 96 Room Air 04/18/20 08:00 36.6 77 20 137/74 (95) 96 Room Air I & O 04/19/20 07:00 Intake Total 2887 ml Balance 2887 ml LUE dressing intact to OR today for planned repeat I and D FITO ACKERMAN MD Apr 19, 2020 07:31
--- NOTE | 2020-04-19 07:33 | Progress Note-Pre Operative ---
Pre-Operative Progress Note H&P Reviewed The H&P was reviewed, patient examined and no changes noted. Date Seen by Provider: Apr 19, 2020 Time Seen by Provider: 07:32 Date H&P Reviewed: Apr 19, 2020 Time H&P Reviewed: 07:32 Pre-Operative Diagnosis: left shoulder septic arthritis FITO ACKERMAN MD Apr 19, 2020 07:33
--- NOTE | 2020-04-19 07:33 | Progress Note-Post Operative ---
Post-Operative Progess Note Surgeon (s)/Railroad Car Repair Supervisor (s) Surgeon FITO ACKERMAN MD Railroad Car Repair Supervisor: Andrzej St Pre-Operative Diagnosis left shoulder septic arthritis Post-Operative Diagnosis left shoulder septic arthritis Procedure & Operative Findings Date of Procedure 04/19/20 Procedure Performed/Findings Irrigation and debridement of left shoulder Anesthesia Type GETA Estimated Blood Loss Estimated blood loss (mL): minimal Specimens/Packing Specimens Removed culture sent Packing: none FITO ACKERMAN MD Apr 19, 2020 07:33
[2020-04-19] MEDS ORDERED: LACTATED RINGERS 1,000 ML IV PRN (08:16)
[2020-04-19] MEDS: RIFAMPIN 150 MG (RIFADIN) CAP PO SCH ×2 (09:04→21:18)
[2020-04-19] MEDS ORDERED: LIDOCAINE PF 2% 5 ML (XYLOCAINE) VIAL ONE (09:57)
[2020-04-19] MEDS ORDERED: proPOfol 200 MG/20 ML (DIPRIVAN) VIAL IV ONE (09:57)
[2020-04-19] MEDS ORDERED: ONDANSETRON 4 MG/2 ML (SDV) Z0FRAN ONE (09:57)
[2020-04-19] MEDS ORDERED: fentaNYL INJECTION 100 MCG/2 ML AMP ONE (09:57)
[2020-04-19] MEDS ORDERED: MIDAZOLAM 2 MG/2 ML (VERSED) VIAL ONE (09:57)
[2020-04-19] MEDS ORDERED: SEVOFLURANE (ULTANE) 15 ML INHAL SOLN ONE (09:58)
[2020-04-19] MEDS ORDERED: BUPIVACAINE 0.25% 30 ML (SENSORCAINE) VIAL ONE (09:58)
[2020-04-19] MEDS ORDERED: ONDANSETRON 4 MG/2 ML (SDV) Z0FRAN IVP PRN ×2 (10:00→11:45)
[2020-04-19] MEDS ORDERED: morphine INJ 4 MG/ML 1 ML (VIAL/SYRINGE) IVP PRN (10:00)
[2020-04-19] MEDS ORDERED: HYDROcodone/APAP 7.5 MG/325 MG (LORTAB, LORCET PLUS) TABLET PO PRN (10:00)
[2020-04-19] MEDS ORDERED: ACETAMINOPHEN 325 MG TABLET PO PRN (10:00)
--- NOTE | 2020-04-19 10:20 | NUR ---
Patient taken down for I and D procedure with surgical staff at t his time
[2020-04-19] MEDS ORDERED: MEPERIDINE (DEMEROL) INJ 50 MG/ML IVP ONE (11:45)
[2020-04-19] MEDS ORDERED: morphine INJ 10 MG/ML 1ML (SYR OR VIAL) IVP ONE (11:45)
--- NOTE | 2020-04-19 12:30 | NUR ---
Patient returned from I and D procedure. Patient alert and oriented at this time. States his pain is a 2. Report received from Caroline CASTELLANOS.
[2020-04-19] MEDS ORDERED: CLINDAMYCIN INJECTION 300 MG in NS (IVPB) 50 ML IV SCH (14:00)
--- NOTE | 2020-04-19 14:30 | NUR ---
Ordered regular diet per Dr. Gilliland request
--- NOTE | 2020-04-19 20:58 | OPERATIVE REPORT ---
DATE OF SERVICE: 04/19/2020 PREOPERATIVE DIAGNOSIS: Left shoulder septic arthritis. POSTOPERATIVE DIAGNOSIS: Left shoulder septic arthritis. PROCEDURE: Left shoulder repeat irrigation and debridement. SURGEON: Zac Ackerman MD INVENTORY PLANNER: Andrzej St, who assisted throughout the procedure and closed the incision. ANESTHESIA: General endotracheal by Dutch Nelson CRNA. ESTIMATED BLOOD LOSS: Minimal. DRAINS: None. COMPLICATIONS: None. POSTOPERATIVE PLAN: IV antibiotics with assessment of cultures. The patient was transferred to the recovery room awake and in stable condition. STATEMENT OF MEDICAL NECESSITY: The patient is a 74-year-old gentleman who underwent irrigation and debridement of left shoulder septic arthritis on Friday, presented today after being admitted for IV antibiotics for a planned repeat irrigation and debridement. DESCRIPTION OF PROCEDURE: After risks and benefits of procedure were discussed and questions were answered, informed consent was signed and placed on chart, the operative site was confirmed in the preoperative holding area initialed by the surgeon. The patient was then transferred to the operating room and after adequate levels of general endotracheal anesthetic were obtained, a timeout was called, confirming the operative site. Left upper extremity was prepped and draped in the usual sterile fashion with the previously placed sutures were removed. The wound was opened. No gross purulence was noted superficially. The deltoid was then opened, removing the previously placed sutures. There was fluid noted in the subdeltoid area, but no purulence noted. This was cultured. No necrotic tissue was noted. This was then irrigated with 5 liters pulse lavage. The deltoid was then closed with 0 Vicryl in [id number] interrupted fashion. The deltoid was then irrigated with pulse lavage using a total of 6 liters throughout the procedure. A 2-0 Vicryl was used to reapproximate subcutaneous tissue and skin was closed with 4-0 nylon in vertical mattress interrupted fashion. A soft dressing was applied. The patient was transferred to the recovery room awake and in stable condition. Job ID: [id number] DocumentID: [id number] Dictated Date: 04/19/2020 11:28:39 Wrapping Checker Date: 04/19/2020 20:57:11 Dictated By: ZAC ACKERMAN MD
[2020-04-19] MEDS: DOXYCYCLINE 100 MG (VIBRAMYCIN) TABLET PO SCH (21:18)
[2020-04-19] MEDS: OMEGA 3 (FISH OIL) 1000 MG CAP PO SCH (21:18)
[2020-04-20] VITALS: BP 135/68
[2020-04-20] MEDS: CLINDAMYCIN INJECTION 300 MG in NS (IVPB) 50 ML IV SCH (05:22)
--- NOTE | 2020-04-20 07:58 | Progress Note ---
Standard Progress Note Progress Notes/Assess & Plan Date Seen by a Provider: Apr 20, 2020 Time Seen by a Provider: 07:57 Progress/Assessment & Plan no complaints cultures Pending Vital Signs Date Time Temp Pulse Resp B/P (MAP) Pulse Ox O2 Delivery O2 Flow Rate FiO2 04/18/20 03:30 36.7 74 20 151/67 (95) 94 Room Air 04/18/20 03:17 Room Air 04/18/20 00:07 36.6 82 20 136/71 (92) 92 Room Air 04/17/20 21:00 98 Room Air 04/17/20 20:08 36.9 71 20 119/67 (84) 98 Room Air 04/17/20 18:45 99 Room Air 04/17/20 18:04 Room Air 04/17/20 18:04 36.2 14 131/78 (95) 99 Room Air 04/17/20 18:00 14 131/78 (95) 99 Room Air 04/17/20 17:55 Room Air 04/17/20 17:50 16 131/98 (109) 95 Room Air 04/17/20 17:40 OxyMask 3 04/17/20 17:40 14 123/57 (79) 100 OxyMask 3 04/17/20 17:30 16 103/48 (66) 100 OxyMask 3 04/17/20 17:25 OxyMask 6 04/17/20 17:20 16 97/49 (65) 97 OxyMask 6 04/17/20 17:13 36.4 18 98/52 (67) 99 OxyMask 8 04/17/20 17:13 OxyMask 8 04/17/20 15:03 36.5 78 20 146/73 (97) 98 Room Air I & O 04/18/20 07:00 Intake Total 1800 ml Balance 1800 ml Laboratory Tests Test 04/17/20 16:35 Range/Units L shoulder dressing intact. NVI distally s/p I and D left shoulder likely P acnes, but follow cultures plan for repeat I and D tomorrow Final Diagnosis no complaints cultures negative thus far no Gram stain report Vital Signs Date Time Temp Pulse Resp B/P (MAP) Pulse Ox O2 Delivery O2 Flow Rate FiO2 04/20/20 00:00 36.5 71 18 135/68 (90) 95 Room Air 04/19/20 20:00 96 Room Air 04/19/20 19:25 36.4 71 20 149/75 (99) 96 Room Air 04/19/20 16:44 36.6 64 16 134/73 (93) 96 Room Air 04/19/20 12:20 Room Air 04/19/20 12:10 Room Air 04/19/20 12:10 36.4 15 102/58 (73) 95 Room Air 04/19/20 12:00 36.5 63 20 112/67 (82) 92 Room Air 04/19/20 12:00 OxyMask 2 04/19/20 12:00 14 96/60 (72) 97 Room Air 04/19/20 11:50 14 87/59 (68) 99 OxyMask 2 04/19/20 11:50 OxyMask 4 04/19/20 11:40 15 129/61 (83) 99 OxyMask 4 04/19/20 11:37 OxyMask 6 04/19/20 11:30 15 131/59 (83) 100 OxyMask 6 04/19/20 11:27 OxyMask 8 04/19/20 11:27 36.4 16 118/53 (74) 100 OxyMask 8 04/19/20 09:00 96 Room Air 04/19/20 08:00 36.3 71 20 149/75 (99) 96 Room Air I & O 04/20/20 07:00 Intake Total 492 ml Balance 492 ml Left shoulder dressing intact. NVI distally s/p L shoulder I and D DC to home FU on Friday FITO ACKERMAN MD Apr 20, 2020 07:58
[2020-04-20 08:00] VITALS: BP 141/76
[2020-04-20] MEDS: DOXYCYCLINE 100 MG (VIBRAMYCIN) TABLET PO SCH (08:19)
[2020-04-20] MEDS: OMEGA 3 (FISH OIL) 1000 MG CAP PO SCH (08:19)
[2020-04-20] MEDS: RIFAMPIN 150 MG (RIFADIN) CAP PO SCH (08:19)
[2020-04-20] MEDS ORDERED: PANTOPRAZOLE 40 MG (PROTONIX) TAB PO SCH (09:00)
[2020-04-20] MEDS ORDERED: ASPIRIN 81 MG CHEW (CHILDREN'S ASA) PO SCH (09:00)
[2020-04-20] MEDS ORDERED: lisINopril 40 MG (PRINIVIL) TABLET PO SCH (09:00)
[2020-04-20 09:40] VITALS: BP 141/76
--- NOTE | 2020-04-21 03:21 | DISCHARGE SUMMARY ---
DATE OF SERVICE: DIAGNOSES: 1. Left shoulder septic arthritis. 2. Hypertension. 3. Coronary artery disease. PROCEDURE: Irrigation and debridement of left shoulder x2. HISTORY: The patient is a 74-year-old gentleman who presented approximately 7 weeks status post left rotator cuff repair. He had erythema, which did not improve with oral antibiotics. Therefore, he recommended the patient undergo operative irrigation and debridement. He was admitted where he underwent irrigation and debridement on the day of admission with planned repeat irrigation and debridement at 48 hours. His cultures were pending as well as his Gram stain. At time of discharge, this was presumed to be Propionibacterium acnes infection. He was treated with clindamycin and rifampin. He will be discharged on Augmentin and rifampin with followup on Friday. CONDITION AT DISCHARGE: Good. DISCHARGE DIET: Regular. He is to call for any worsening signs or symptoms of infection. Job ID: [id number] DocumentID: [id number] Dictated Date: 04/20/2020 07:56:24 Agricultural Commodities Inspector Date: 04/21/2020 03:21:36 Dictated By: FITO ACKERMAN MD
--- NOTE | 2020-04-25 09:15 | Physician Query Clarification ---
PQ-Link Infection to Dev/Proc Admission/Discharge Admission Date: Apr 18, 2020 at 08:07 Discharge Date: Apr 20, 2020 at 09:40 Dr. Ackerman, The medical record reflects the following clinical scenario: History/Risk Factors: s/p Lt. rotator cuff repair, HTN, coronary stents Clinical Findings: deltoid split was opened and there was found to be purulent material at the rotator cuff repair site. The rotator cuff anchor was identified and removed without difficulty. The tissue quality remained good with no necrosis noted. This appeared to be a very low virulence consistent with Propionibacterium infection. This was then irrigated with additional 4 liters pulse lavage using a total of 6 liters throughout the procedure. No purulence remained. The deltoid split was repaired in a [id number] fashion using #1 Vicryl. Treatment: I&D, suture deltoid split, IV Clindamycin Question: Can you specify if the lt shoulder infection is due to/associated with the rotator cuff repair? Please document a response in Progress Note or Discharge Summary. 1. Yes - lt shoulder infection is due to/associated with the rotator cuff repair. 2. No - lt shoulder infection is not due to/associated with the rotator cuff repair. Due to septic arthritis unrelated to rotator cuff repair. 3. Other, with explanation of the clinical findings. 4. Clinically undetermined, no explanation for the clinical findings. PHYSICIAN RESPONSE Specify if infection: 1 Please remember a lack of response to the above will prompt a phone page by [facility]/Coding staff. In responding to this query, please exercise your independent professional judgment. The purpose of this communication is to more accurately reflect the complexity of your patients condition. The fact that a question is asked does not imply that any particular answer is desired or expected. Thank you for your timely response to this clarification. Requestors name: Rahat THIS PHYSICIAN QUERY FORM IS A PERMANENT PART OF THE MEDICAL RECORD RAHAT KIM Apr 25, 2020 09:15 FITO ACKERMAN MD Apr 25, 2020 17:27
== END 2020-04-20 09:40 | disposition home or self-care (01) | DRG 857 ==
LOC: SDC 15:05 → 4TH 18:25 → SDC 04-18 08:07
PROVIDERS: ADMIT Orthopaedic Surgery; ATTEND Orthopaedic Surgery
PROC: 0KQ60ZZ Repair Left Shoulder Muscle, Open Approach (ICD-10-PCS; 2020-04-17)
PROC: 0K960ZZ Drainage of Left Shoulder Muscle, Open Approach (ICD-10-PCS; principal; 2020-04-17 16:15)
DX: T81.42XA Infection following a procedure, deep incisional surgical site, initial encounter (principal); M00.812 Arthritis due to other bacteria, left shoulder; I10 Essential (primary) hypertension; Z20.828 Contact with and (suspected) exposure to other viral communicable diseases; Z95.5 Presence of coronary angioplasty implant and graft; Z87.891 Personal history of nicotine dependence; B96.89 Other specified bacterial agents as the cause of diseases classified elsewhere
CPT/HCPCS: 87070; 87075; 87081; 87205; 87635; 94664

== ENCOUNTER → 2020-09-25 | Outpatient (CLI) | payer MEDICARE ==
[~2020-09-25] MED LIST changes: +DOXY100T2 PO; -LISI-552 PO; +LISI20TA26 PO; +LISI40TA9 PO; -OXYC-471 PO; +OXYC1TAB11 PO; +SULF1TAB35 PO
== END ==
LOC: CARD 13:16
PROVIDERS: ATTEND Physician Assistant
DX: I25.10 Atherosclerotic heart disease of native coronary artery without angina pectoris (principal); I10 Essential (primary) hypertension
CPT/HCPCS: 93306

== ENCOUNTER → 2020-11-08 | Outpatient (CLI) | payer MEDICARE ==
[~2020-11-08] MED LIST changes: +CATHETER FLUSH 10 ML SYR IV PRN
[2020-11-08 09:20] VITALS: BP 184/79
--- NOTE | 2020-11-08 13:35 | Cardiology Stress Test Report ---
Stress Test Report Date of Procedure/Referring: Date of Procedure: Nov 08, 2020 Christina Bell Admitting Physician Gavin Fernandez MD Indications: HTN Baseline Heart Rate: 51 Baseline Blood Pressure: Blood Pressure Systolic: 184 Blood Pressure Diastolic: 79 Vital Signs Date Time Temp Pulse Resp B/P (MAP) Pulse Ox O2 Delivery O2 Flow Rate FiO2 11/08/20 09:20 57 18 184/79 (114) 99 Room Air Baseline Vital Signs Vital Signs Date Time Temp Pulse Resp B/P (MAP) Pulse Ox O2 Delivery O2 Flow Rate FiO2 11/08/20 09:20 57 18 184/79 (114) 99 Room Air Baseline EKG: Baseline EKG: NSR Summary: After explaining the procedure and details to the patient, he signed the consent and was brought to the stress nuclear laboratory. Patient exercised on standard Rashid protocol, EKG, heart rate and blood pressure were monitored continuously, resting and stress doses of radio tracer were injected, imaging was acquired and reviewed in the short axis, horizontal long axis and vertical long axis views Patient was able to exercise for a total of 10.30 minutes on Rashid protocol, METs 12.1 Maximum heart rate 136 Maximum blood pressure 262/78 Stress EKG, Minimal nondiagnostic changes Recovery EKG, Return to baseline TID: 1.07 SSS: 4 SDS: 2 EF: 49 Conclusion: 1. Excellent exercise tolerance for a total of 10-minute 30 seconds on standard Rashid protocol, 12.1 METS achieving 92% of maximal expected heart rate 2. Severe hypertensive response to exercise with peak blood pressure 262/78 3. Diaphragmatic attenuation with typical male pattern with no significant ischemia or infarction on SPECT images 4. Nondiagnostic EKG changes with exercise return to baseline during recovery 5. Normal left ventricular size, EF 49% BABAK ECHOLS MD Nov 08, 2020 13:35
== END ==
LOC: CARD 08:00
PROVIDERS: ATTEND Physician Assistant
DX: I10 Essential (primary) hypertension (principal); I25.10 Atherosclerotic heart disease of native coronary artery without angina pectoris
CPT/HCPCS: 78452; 93017; A9502

== ENCOUNTER 2022-09-03 10:42 | Emergency (ER) | payer MEDICARE ==
[~2022-09-03] VITALS: Ht 167.7 cm; Wt 75.0 kg
[~2022-09-03 10:42] MED LIST changes: -CATHETER FLUSH 10 ML SYR IV PRN; -SULF1TAB35 PO; +SULF1TAB38 PO
--- NOTE | 2022-09-03 11:30 | Diagnostic Imaging Report ---
CLINICAL INDICATIONS: Patient states symptoms have been going on for approximately 1 week. Patient has pain over mastoid sinus. Patient with right facial paralysis. EXAM: Axial CT scan of the brain performed without IV contrast. High-resolution axial CT brain images with sagittal and coronal reformations were also created. Auto Exposure Controls were utilized during the CT exam to meet ALARA standards for radiation dose reduction. COMPARISON: None. FINDINGS: There is no evidence of acute cerebral infarct, intracranial hemorrhage, or gross mass effect. The brain parenchymal volume appears appropriate for patient's age. There is a small prominent perivascular space versus chronic infarct seen beneath the left basal ganglia region. Mild chronic small vessel ischemic disease is seen. There is normal fraser-white matter distinction. There is no significant midline shift or herniation. The visualized [place] vascular structures have normal flow void appearance. There is no evidence of hydrocephalus. The basal cisterns are unremarkable. The skull, extracranial soft tissue, and orbits are unremarkable. The paranasal sinuses are unremarkable. Temporal bones show no significant abnormality. IMPRESSION: 1: There is no CT evidence of acute intracranial process. There is no dense vessel sign. 2: There is a small prominent perivascular spaces versus chronic lacunar infarct beneath the left basal ganglia region. 3: Age related brain parenchymal changes including chronic small vessel ischemic disease. Results of this report discussed with Dr. Jorgito Rdz via the telephone on 09/03/2022 at 1125 hours. Dictated by: Dictated on workstation # [id number]
--- NOTE | 2022-09-03 11:57 | ED Neurological Problem ---
General Chief Complaint: Neurological Problems Stated Complaint: STROKE-LIKE SYMPTOMS Nursing Triage Note: PT AMB TO RM 5 WITH COMPLAINT OF LEFT SIDE FACIAL NUMBNESS. STATES HAS BEEN GOING ON FOR APPROX 1 WEEK. Source: patient Exam Limitations: no limitations History of Present Illness Date Seen by Provider: Sep 03, 2022 Time Seen by Provider: 10:49 Initial Comments This 77-year-old gentleman presents to the emergency room with right-sided facial weakness that started about 5 days ago. His complaint of left-sided facial numbness I believe is more of a perception as he actually has no decrease in sensation of the left side of his face. He has obvious paralysis of the right face with facial drooping. He describes dribbling of beverages out of the right side of his mouth and inability to completely close his right eye. He denies any recent illness such as URI or fever. He denies any other neurologic deficits. Paralysis affects the forehead and has classic appearance of Burns's palsy. He is notably hypertensive on arrival. His primary care provider is Dr. Gavin Huff and his overedge machine operator is Dr. Ontiveros. He additionally complains of some pain in around the right mastoid sinus over the past few days, but that pain is not present now. Allergies and Home Medications Allergies Coded Allergies: No Known Drug Allergies (Verified , 07/31/18) Patient Home Medication List Home Medication List Reviewed: Yes Aspirin (Aspirin) 81 Mg Tab.chew, 81 MG PO DAILY, (Reported) Entered as Reported by: FRANCA GODWIN on 02/24/20 1420 Doxycycline Hyclate (Doxycycline Hyclate) 100 Mg Tablet, 100 MG PO BID, (Reported) Entered as Reported by: GISSEL GASTON on 04/17/20 1606 Lisinopril (Lisinopril) 40 Mg Tablet, 40 MG PO DAILY, (Reported) Entered as Reported by: FRANCA GODWIN on 02/24/20 1420 Multivitamin (Multivitamins) 1 Each Tablet, 1 EACH PO DAILY, (Reported) Entered as Reported by: FRANCA GODWIN on 07/28/18 1330 [place]-3 Fatty Acids/Fish Oil ([place]-3 Fish Oil 1,000 mg Sfgl) 1 Each Capsule, 1,000 MG PO TID, (Reported) Entered as Reported by: FRANCA GODWIN on 07/28/18 1330 Pantoprazole Sodium (Pantoprazole Sodium) 40 Mg Tablet.dr, 40 MG PO DAILY, (Reported) Entered as Reported by: FRANCA GODWIN on 07/28/18 1330 Pravastatin Sodium (Pravastatin Sodium) 80 Mg Tablet, 80 MG PO DAILY, (Reported) Entered as Reported by: FRANCA GODWIN on 07/28/18 1330 Prednisone (Prednisone) 20 Mg Tab, 40 MG PO DAILY Prescribed by: JORGITO RDZ on 09/03/22 1201 Sulfamethoxazole/Trimethoprim (Bactrim Ds Tablet) 1 Each Tablet, 1 EACH PO BID, (Reported) Entered as Reported by: GISSEL GASTON on 04/17/20 1606 Valacyclovir HCl (Valacyclovir) 1,000 Mg Tablet, 1,000 MG PO TID Prescribed by: JORGITO RDZ on 09/03/22 1201 Review of Systems Review of Systems Constitutional: no symptoms reported Eyes: See HPI Ears, Nose, Mouth, Throat: see HPI Respiratory: no symptoms reported Cardiovascular: see HPI Gastrointestinal: no symptoms reported Genitourinary: no symptoms reported Musculoskeletal: no symptoms reported Skin: no symptoms reported Psychiatric/Neurological: See HPI Endocrine: No Symptoms Reported Hematologic/Lymphatic: No Symptoms Reported Past Xreaakt-Tlnrrc-Iydzsz Hx Patient Social History Tobacco Use?: No Use of E-Cig and/or Vaping dev: No Substance use?: No Alcohol Use?: No Pt feels they are or have been: No Seasonal Allergies Seasonal Allergies: No Past Medical History Surgery/Hospitalization HX: 1 cardiac stent in 2003,LEFT ROTATOR CUFF REPAIR 03/01/20 Surgeries: Yes Coronary Stent, Orthopedic Respiratory: No Currently Using CPAP: No Currently Using BIPAP: No Cardiac: Yes (HX OF ME IN 2003, [address] ONTIVEROS) Coronary Artery Disease, Heart Attack, Hypertension Neurological: No Genitourinary: No Gastrointestinal: Yes Polyps Musculoskeletal: No Endocrine: No HEENT: No Cancer: No Psychosocial: No Integumentary: No Blood Disorders: No Adverse Reaction/Blood Tranf: No Family Medical History No Pertinent Family Hx Physical Exam Vital Signs Vital Signs - First Documented 09/03/22 10:49 Temp 36.9 Pulse 70 Resp 16 B/P (MAP) 180/90 (120) Pulse Ox 96 O2 Delivery Room Air Capillary Refill : Height, Weight, BMI Height: 5'7.00" Weight: 184lbs. 0.0oz. 83.804862zh; 26.00 BMI Method: General Appearance: WD/WN, no apparent distress HEENT: PERRL/EOMI, TMs normal, pharynx normal, other (Right-sided facial droop) Neck: normal inspection Respiratory: lungs clear, normal breath sounds, no respiratory distress Cardiovascular: regular rate, rhythm, no edema, no murmur Gastrointestinal: non tender, soft Extremities: normal inspection, no pedal edema Neurologic/Psychiatric: no motor/sensory deficits, alert, normal mood/affect, oriented x 3, other (Although patient described a numb sensation over the left face, he actually had intact sensation of the face bilaterally on exam suggesting this was a perception issue rather than a true numbness) Crainal Nerves: normal hearing, normal speech, PERRL, facial asymmetry, facial droop Coordination/Gait: normal finger to nose, normal gait Motor/Sensory: no motor deficit, no sensory deficit Skin: normal color, warm/dry Procedures/Interventions Suture Size: 4-0 Progress/Results/Core Measures Results/Orders My Orders Orders - JORGITO PALMER MD Ct Head Wo-R/O Stroke (09/03/22 11:06) Vital Signs/I&O 09/03/22 09/03/22 10:49 12:08 Temp 36.9 Pulse 70 68 Resp 16 16 B/P (MAP) 180/90 (120) 156/74 Pulse Ox 96 97 O2 Delivery Room Air Room Air Blood Pressure Mean: 120 Progress Progress Note : Progress Note There is obvious forehead paralysis on the right suggesting Burns's palsy rather than a stroke as etiology for his facial droop. There is also notable eyelid involvement which is typical of Burns's palsy. He is about 5 days into the course of illness. Antiviral medication and prednisone is likely not going to be very effective. I discussed this with the patient. He wishes to try antiviral medication and prednisone. We discussed risks and benefits. I did provide a prescription at his request given his understanding it is unlikely to have a significant impact. His blood pressure did improve after rest to an acceptable level without any intervention. See discharge instructions for further discussion. Discharge instructions were reviewed in detail, particularly regarding protection of his eye. Diagnostic Imaging Diagonstic Imaging: CT Plain Films/CT/US/NM/MRI: head Comments CT head was viewed by me and discussed with the radiologist. Report was reviewed as below: NAME: LEANA ALEMAN [facility] REC#: [id number] PT STATUS: DEP ER : 1945 PHYSICIAN: JORGITO PALMER MD ADMIT DATE: 09/03/22/ER Signed Date of Exam:09/03/22 CT HEAD WO-R/O STROKE CLINICAL INDICATIONS: Patient states symptoms have been going on for approximately 1 week. Patient has pain over mastoid sinus. Patient with right facial paralysis. EXAM: Axial CT scan of the brain performed without IV contrast. High-resolution axial CT brain images with sagittal and coronal reformations were also created. Auto Exposure Controls were utilized during the CT exam to meet ALARA standards for radiation dose reduction. COMPARISON: None. FINDINGS: There is no evidence of acute cerebral infarct, intracranial hemorrhage, or gross mass effect. The brain parenchymal volume appears appropriate for patient's age. There is a small prominent perivascular space versus chronic infarct seen beneath the left basal ganglia region. Mild chronic small vessel ischemic disease is seen. There is normal fraser-white matter distinction. There is no significant midline shift or herniation. The visualized [place] vascular structures have normal flow void appearance. There is no evidence of hydrocephalus. The basal cisterns are unremarkable. The skull, extracranial soft tissue, and orbits are unremarkable. The paranasal sinuses are unremarkable. Temporal bones show no significant abnormality. IMPRESSION: 1: There is no CT evidence of acute intracranial process. There is no dense vessel sign. 2: There is a small prominent perivascular spaces versus chronic lacunar infarct beneath the left basal ganglia region. 3: Age related brain parenchymal changes including chronic small vessel ischemic disease. Results of this report discussed with Dr. Jorgito Rdz via the telephone on 09/03/2022 at 1125 hours. Dictated by: Dictated on workstation # [id number] Dict: 09/03/22 1118 Trans: 09/03/22 [address] [facility] [id number] Interpreted by: TRUDI PENA MD Electronically signed by: TRUDI PENA MD 09/03/22 1734 Departure Impression Primary Impression: Burns's palsy Additional Impression: Hypertension Qualified Codes: I10 - Essential (primary) hypertension Disposition: 01 HOME, SELF-CARE Condition: Stable Departure-Patient Inst. Decision time for Depature: 11:50 Referrals: GAVIN HUFF MD (PCP/Family) Primary Care Physician Patient Instructions: Burns's Palsy (DC) Add. Discharge Instructions: The paralysis on the right side of your face is most likely caused by Burns's palsy. This condition often improves with out treatment but could be helped by taking prednisone and acyclovir. Take prednisone early in the day to avoid sleep disturbance. Take with food or mild to avoid stomach upset. Stop prednisone if you have intolerable side effects such as stomach upset, agitation, blood pressure elevation, sleep disturbance, etc. Exercise extreme caution with your eye while you are blink reflex and eyelid strength are impaired. In sobia settings protect your eyes with sunglasses, preferably sunglasses that wrap around. Avoid windy and richard environments that could cause debris to fly into an unprotected eye. If you are unable to close your eye completely at night, tape your eye shut. If dryness becomes a problem with impaired blinking, use artificial tears liberally. Follow-up with your primary care provider for repeat examination in the near future. Call with questions or concerns. All discharge instructions reviewed with patient and/or family. Voiced understanding. Scripts Valacyclovir HCl (Valacyclovir) 1,000 Mg Tablet 1000 MG PO TID, #21 TAB Prov: JORGITO PALMER MD 09/03/22 Prednisone (Prednisone) 20 Mg Tab 40 MG PO DAILY, #14 TAB Prov: JORGITO PALMER MD 09/03/22 Copy Copies To 1: GAVIN HUFF MD, JOSHUA T MD Sep 03, 2022 11:57
[2022-09-03] MEDS ORDERED: VALA10007 PO (12:01)
[2022-09-03] MEDS ORDERED: PRD20T PO (12:01)
[2022-09-03 12:08] VITALS: BP 156/74
== END 2022-09-03 12:08 | disposition home or self-care (01) ==
LOC: EDUNIT# 10:42 → ER 10:44
DX: G51.0 Bell's palsy (principal); I10 Essential (primary) hypertension
CPT/HCPCS: 70450